=== PATIENT | female | born 2000 | race Caucasian/White ===

== ENCOUNTER → 2019-11-19 | Outpatient (CLI) | payer OTHER ==
--- NOTE | 2019-11-20 16:55 | SLEEPHOME ---
DATE OF PROCEDURE: 11/19/2019 Ordered by: JUANA Miranda Diagnostic home sleep testing was performed due to concern for the obstructive sleep apnea syndrome. For testing a nocturnal T3 respiratory monitoring device was used. Continuous record was made of pulse, oxygen saturation, airflow, chest, abdominal strain and body position. 9 hours and 59 minutes of data were reviewed. There were 8 hours and 5 minutes marked as time in bed. During the interval marked time in bed there were 73 respiratory events identified of 10 seconds in duration or greater for respiratory event index of 9. The events were primarily obstructive. Baseline pulse rate 64, pulse rate ranged 38-103. Baseline saturation 93%. Saturations fell to 85%. Testing was performed in both the supine and nonsupine positions. IMPRESSION Abnormal home sleep testing with repetitive respiratory events and oxygen desaturations to 85% with a respiratory event index of 9 is consistent with the obstructive sleep apnea syndrome. RECOMMENDATIONS The patient should be encouraged to undergo formal sleep evaluation.
== END ==
LOC: M SLEEP HO 12:43
PROVIDERS: ATTEND Nurse Practitioner Family
DX: R06.83 Snoring (principal)